=== PATIENT | female | born 1960 | race African-American/Black ===

== ENCOUNTER 2020-06-10 13:26 | Outpatient (CLI) | payer MEDICARE | END 2020-06-10 13:27 | disposition home or self-care (01) | LOC: CSHWCC 13:26 | PROVIDERS: ATTEND Nurse Practitioner Family | DX: T81.89XA Other complications of procedures, not elsewhere classified, initial encounter (principal); E11.621 Type 2 diabetes mellitus with foot ulcer; G89.11 Acute pain due to trauma; I10 Essential (primary) hypertension; I70.25 Atherosclerosis of native arteries of other extremities with ulceration; Z89.412 Acquired absence of left great toe; Z89.511 Acquired absence of right leg below knee | CPT/HCPCS: 97605; 99203; G0463 ==

== ENCOUNTER 2020-07-04 11:42 | Outpatient (CLI) | payer MEDICARE | END 2020-07-04 11:43 | disposition home or self-care (01) | LOC: CSHWCC 11:42 | PROVIDERS: ATTEND Nurse Practitioner Family | DX: T81.89XD Other complications of procedures, not elsewhere classified, subsequent encounter (principal); E11.621 Type 2 diabetes mellitus with foot ulcer; L97.509 Non-pressure chronic ulcer of other part of unspecified foot with unspecified severity; G89.11 Acute pain due to trauma; I10 Essential (primary) hypertension; I70.25 Atherosclerosis of native arteries of other extremities with ulceration; Z89.412 Acquired absence of left great toe; Z89.511 Acquired absence of right leg below knee | CPT/HCPCS: 97605 ==

== ENCOUNTER 2020-07-18 10:45 | Outpatient (CLI) | payer MEDICARE | END 2020-07-18 10:46 | disposition home or self-care (01) | LOC: CSHWCC 10:45 | PROVIDERS: ATTEND Nurse Practitioner Family | DX: T81.89XD Other complications of procedures, not elsewhere classified, subsequent encounter (principal); E11.621 Type 2 diabetes mellitus with foot ulcer; L97.509 Non-pressure chronic ulcer of other part of unspecified foot with unspecified severity; G89.11 Acute pain due to trauma; I10 Essential (primary) hypertension; I70.25 Atherosclerosis of native arteries of other extremities with ulceration; Z89.412 Acquired absence of left great toe; Z89.511 Acquired absence of right leg below knee | CPT/HCPCS: 99213; G0463 ==

== ENCOUNTER 2022-04-09 19:03 | Inpatient (IN) | payer MEDICARE ==
[~2022-04-09 19:03] MED LIST: Iopamidol 300 61% 100 ML VIAL FS ONE
[2022-04-09] MEDS ORDERED: Metoclopramide HCl 10 MG/2 ML VIAL ONE (19:52)
[2022-04-09 20:01] LABS: #Basophils 0.1 10x3/uL (0.0-0.2); #Eosinphils 0.3 10x3/uL (0.0-0.5); #Monocytes 0.9 10x3/uL (0.0-1.1); #Neutrophils 7.2 10x3/uL (1.5-8.4); %Basophils 0.6 % (0.0-2.0); %Eosinophils 2.4 % (0.0-6.0); %Lymphocytes 16.8 % (18.0-47.0); %Neutrophils 67.3 % (40.0-75.0); Hemoglobin 7.9 g/dL (12.0-15.5); Mean Corpuscular HGB CONC 30.7 g/dL (32.0-36.0); Mean Corpuscular Hemoglobin 29.3 pg (27.0-33.0); Mean Corpuscular Volume 95.2 fl (81.6-98.3); Mean Platelet Volume 8.9 fl (7.4-10.4); Platelet Count 380 10x3/uL (150-450); RBC Distribution Width 17.3 % (11.5-14.5); White Blood Cell (WBC) Count 10.8 10x3/uL (3.5-10.5)
[2022-04-09 20:12] LABS: INR-International Normal Ratio 1.1; PTT 31.3 sec (22.0-33.0); Prothrombin Time 12.1 sec (9.5-12.1)
[2022-04-09 20:17] LABS: ALT (SGPT) 11 U/L (8-55); AST (SGOT) 17 U/L (5-34); Albumin 2.9 g/dL (3.4-4.8); Alkaline Phosphatase 111 U/L (40-110); Anion Gap 16 mmol/L (10-20); BUN (Urea Nitrogen) 23 mg/dL (9.8-20.1); Bilirubin, Total 0.3 mg/dL (0.2-1.2); Calc. Creatinine Clearance 0 mL/min (70-130); Calcium 8.7 mg/dL (7.8-10.44); Carbon Dioxide 25 mmol/L (23-31); Chloride 99 mmol/L (98-107); Estimated GFR 12; Globulin 4.5 g/dL (2.4-3.5); Glucose 135 mg/dL (80-115); Lipase 100 U/L (8-78); Magnesium 1.8 mg/dL (1.6-2.6); Potassium 3.7 mmol/L (3.5-5.1); Protein, Total 7.4 g/dL (5.8-8.1); Sodium 136 mmol/L (136-145)
[2022-04-09 20:47] LABS: SARS-CoV-2 NAA Rapid Test Not Detected (NotDetected)
[2022-04-09] MEDS ORDERED: Furosemide 40 MG/4 ML VIAL ONE (23:34)
[2022-04-10] MEDS ORDERED: Furosemide 100 MG/10 ML VIAL SLOW IVP SCH (01:30)
[2022-04-10 03:23] VITALS: BMI 32.1
[2022-04-10 05:52] LABS: #Basophils 0.1 10x3/uL (0.0-0.2); #Eosinphils 0.2 10x3/uL (0.0-0.5); #Monocytes 0.7 10x3/uL (0.0-1.1); #Neutrophils 6.5 10x3/uL (1.5-8.4); %Basophils 0.5 % (0.0-2.0); %Eosinophils 2.3 % (0.0-6.0); %Lymphocytes 16.3 % (18.0-47.0); %Monocytes 7.8 % (0.0-10.0); %Neutrophils 68.6 % (40.0-75.0); Hemoglobin 6.8 g/dL (12.0-15.5); Mean Corpuscular HGB CONC 29.8 g/dL (32.0-36.0); Mean Corpuscular Hemoglobin 28.1 pg (27.0-33.0); Mean Corpuscular Volume 94.2 fl (81.6-98.3); Platelet Count 334 10x3/uL (150-450); RBC Distribution Width 17.2 % (11.5-14.5); Red Blood Cell (RBC) Count 2.42 10x6/uL (3.90-5.03); White Blood Cell (WBC) Count 9.4 10x3/uL (3.5-10.5)
[2022-04-10 06:07] LABS: Anion Gap 15 mmol/L (10-20); BUN (Urea Nitrogen) 25 mg/dL (9.8-20.1); Calc. Creatinine Clearance 17 mL/min (70-130); Calcium 8.3 mg/dL (7.8-10.44); Carbon Dioxide 26 mmol/L (23-31); Chloride 101 mmol/L (98-107); Estimated GFR 10; Glucose 152 mg/dL (80-115); Magnesium 1.6 mg/dL (1.6-2.6); Phosphorus 3.4 mg/dL (2.3-4.7); Potassium 3.5 mmol/L (3.5-5.1); Sodium 138 mmol/L (136-145)
[2022-04-10 06:12] LABS: Anisocytosis SLIGHT = 6-15 cells (100X) (0-5/hpf); Hypochromia SLIGHT = 6-15 cells (100X) (0-5/hpf); Microcytosis SLIGHT = 6-15 cells (100X) (0-5/hpf); Ovalocytes SLIGHT = 2-5 cells (100X) (0-1/hpf); Platelet Morphology Comment Appears Adequate; Polychromasia SLIGHT = 2-3 cells (100X) (0-2/hpf); Tear Drops SLIGHT = 2-5 cells (100X) (0-1/hpf)
[2022-04-10] MEDS: Levothyroxine 150 MCG TAB PO SCH (06:13)
[2022-04-10] MEDS: hydrOXYzine 25 MG TAB PO PRN ×2 (06:17→20:50)
[2022-04-10] MEDS ORDERED: Vancomycin Diaylsis Sliding Scale (Wt 71-99) FS SCH (06:30)
[2022-04-10 07:16] LABS: Vancomycin, Random 24.5 ug/mL (See Comment)
[2022-04-10 07:30] LABS: Uric Acid 4.6 mg/dL (2.6-6.0)
[2022-04-10] MEDS ORDERED: Naproxen 500 MG TAB PO SCH (09:00)
[2022-04-10] MEDS ORDERED: EPOETIN ALFA-EPBX (ESRD) 10,000 UNIT/ML VIAL SC SCH (09:00)
[2022-04-10] MEDS ORDERED: Sodium Bicarbonate Tab 325 MG TAB PO SCH (09:00)
[2022-04-10] MEDS: hydrALAZINE 25 MG TAB PO SCH ×3 (09:45→20:51)
[2022-04-10] MEDS: Docusate 100 MG CAP PO SCH ×2 (09:45→10:11)
[2022-04-10] MEDS: NIFEdipine XL 60 MG TAB PO SCH (09:46)
[2022-04-10] MEDS: Cholecalciferol 1,000 UNITS (25 MCG) TAB PO SCH (09:46)
[2022-04-10] MEDS: Carvedilol 25 MG TAB PO SCH ×2 (09:46→19:04)
[2022-04-10] MEDS: Apixaban 2.5 MG TAB PO SCH ×2 (09:46→20:51)
[2022-04-10] MEDS: Ferrous Sulfate 325 MG TAB PO SCH (09:46)
[2022-04-10] MEDS: Furosemide 40 MG TAB PO SCH ×2 (09:46→20:51)
[2022-04-10] MEDS: Calcitriol 0.25 MCG CAP PO SCH (09:47)
[2022-04-10] MEDS: HYDROcodone/Acetaminophen 5/325 mg Tablet PO PRN ×2 (09:54→20:45)
[2022-04-10] MEDS ORDERED: Heparin 10,000 UNITS/ 10 ML VIAL SLOW IVP PRN (12:06)
[2022-04-10] MEDS ORDERED: EPOETIN ALFA-EPBX (ESRD) 10,000 UNIT/ML VIAL IVP PRN (12:16)
[2022-04-10] MEDS: Lantus 1000 UNITS/10 ML VIAL SC SCH (21:24)
[2022-04-10 23:19] LABS: HBSAg Index 0.17 S/CO (0-0.99); Hep B Surf Ag Non-Reactive S/CO (NonReactive)
[2022-04-11] MEDS: HYDROcodone/Acetaminophen 5/325 mg Tablet PO PRN ×4 (02:27→23:07)
[2022-04-11] MEDS: Levothyroxine 150 MCG TAB PO SCH (06:51)
[2022-04-11] MEDS: NIFEdipine XL 60 MG TAB PO SCH (10:31)
[2022-04-11] MEDS: Docusate 100 MG CAP PO SCH (10:31)
[2022-04-11] MEDS: Cholecalciferol 1,000 UNITS (25 MCG) TAB PO SCH (10:32)
[2022-04-11] MEDS: Calcitriol 0.25 MCG CAP PO SCH (10:32)
[2022-04-11] MEDS: Apixaban 2.5 MG TAB PO SCH ×2 (10:33→20:26)
[2022-04-11] MEDS: Furosemide 40 MG TAB PO SCH ×2 (10:33→20:26)
[2022-04-11] MEDS: hydrALAZINE 25 MG TAB PO SCH ×3 (10:33→20:26)
[2022-04-11] MEDS: Ferrous Sulfate 325 MG TAB PO SCH (10:34)
[2022-04-11] MEDS: Carvedilol 25 MG TAB PO SCH ×2 (10:34→17:27)
[2022-04-11] MEDS: hydrOXYzine 25 MG TAB PO PRN ×2 (16:43→23:09)
[2022-04-11] MEDS: Lantus 1000 UNITS/10 ML VIAL SC SCH (23:30)
[2022-04-12] MEDS: hydrOXYzine 25 MG TAB PO PRN ×3 (05:35→18:34)
[2022-04-12] MEDS: HYDROcodone/Acetaminophen 5/325 mg Tablet PO PRN ×3 (05:35→18:34)
[2022-04-12] MEDS: Levothyroxine 150 MCG TAB PO SCH (05:48)
[2022-04-12] MEDS: Calcitriol 0.25 MCG CAP PO SCH (08:14)
[2022-04-12] MEDS: Docusate 100 MG CAP PO SCH (08:14)
[2022-04-12] MEDS: Furosemide 40 MG TAB PO SCH ×2 (08:17→22:02)
[2022-04-12] MEDS: hydrALAZINE 25 MG TAB PO SCH ×3 (08:17→22:02)
[2022-04-12] MEDS: NIFEdipine XL 60 MG TAB PO SCH (08:18)
[2022-04-12] MEDS: Cholecalciferol 1,000 UNITS (25 MCG) TAB PO SCH (08:19)
[2022-04-12] MEDS: Ferrous Sulfate 325 MG TAB PO SCH (08:19)
[2022-04-12] MEDS: Carvedilol 25 MG TAB PO SCH ×2 (08:19→18:34)
[2022-04-12] MEDS: Pantoprazole 40 MG VIAL IVP SCH ×2 (08:19→22:02)
[2022-04-12 09:31] LABS: #Basophils 0.1 10x3/uL (0.0-0.2); #Eosinphils 0.3 10x3/uL (0.0-0.5); #Monocytes 0.8 10x3/uL (0.0-1.1); #Neutrophils 6.7 10x3/uL (1.5-8.4); %Basophils 0.7 % (0.0-2.0); %Eosinophils 2.6 % (0.0-6.0); %Lymphocytes 16.5 % (18.0-47.0); %Neutrophils 68.8 % (40.0-75.0); Hemoglobin 9.2 g/dL (12.0-15.5); Mean Corpuscular HGB CONC 30.6 g/dL (32.0-36.0); Mean Platelet Volume 9.1 fl (7.4-10.4); Platelet Count 357 10x3/uL (150-450); RBC Distribution Width 17.7 % (11.5-14.5); Red Blood Cell (RBC) Count 3.17 10x6/uL (3.90-5.03); White Blood Cell (WBC) Count 9.7 10x3/uL (3.5-10.5)
[2022-04-12] MEDS: Lantus 1000 UNITS/10 ML VIAL SC SCH (22:03)
[2022-04-13] MEDS: hydrOXYzine 25 MG TAB PO PRN ×2 (01:20→20:14)
[2022-04-13] MEDS: HYDROcodone/Acetaminophen 5/325 mg Tablet PO PRN ×2 (01:20→22:17)
[2022-04-13] MEDS ORDERED: Ondansetron PF 4 MG/2 ML Vial IVP PRN (01:24)
[2022-04-13 05:19] LABS: #Basophils 0.1 10x3/uL (0.0-0.2); #Eosinphils 0.3 10x3/uL (0.0-0.5); #Monocytes 0.8 10x3/uL (0.0-1.1); #Neutrophils 6.9 10x3/uL (1.5-8.4); %Basophils 0.7 % (0.0-2.0); %Eosinophils 2.8 % (0.0-6.0); %Lymphocytes 17.3 % (18.0-47.0); %Monocytes 7.5 % (0.0-10.0); %Neutrophils 68.2 % (40.0-75.0); Hemoglobin 8.5 g/dL (12.0-15.5); Mean Corpuscular HGB CONC 31.1 g/dL (32.0-36.0); Mean Corpuscular Hemoglobin 28.7 pg (27.0-33.0); Mean Corpuscular Volume 92.2 fl (81.6-98.3); Mean Platelet Volume 10.3 fl (7.4-10.4); Platelet Count 311 10x3/uL (150-450); RBC Distribution Width 17.6 % (11.5-14.5); Red Blood Cell (RBC) Count 2.96 10x6/uL (3.90-5.03); White Blood Cell (WBC) Count 10.1 10x3/uL (3.5-10.5)
[2022-04-13] MEDS: Levothyroxine 150 MCG TAB PO SCH (05:23)
[2022-04-13 05:28] LABS: Anion Gap 14 mmol/L (10-20); BUN (Urea Nitrogen) 21 mg/dL (9.8-20.1); Calc. Creatinine Clearance 15 mL/min (70-130); Calcium 8.4 mg/dL (7.8-10.44); Carbon Dioxide 24 mmol/L (23-31); Chloride 101 mmol/L (98-107); Estimated GFR 9; Glucose 154 mg/dL (80-115); Potassium 3.6 mmol/L (3.5-5.1); Sodium 135 mmol/L (136-145)
[2022-04-13 07:22] LABS: Vancomycin, Random 17.5 ug/mL (See Comment)
[2022-04-13] MEDS: hydrALAZINE 25 MG TAB PO SCH ×3 (09:00→20:14)
[2022-04-13] MEDS: Docusate 100 MG CAP PO SCH (09:01)
[2022-04-13] MEDS: NIFEdipine XL 60 MG TAB PO SCH (09:21)
[2022-04-13] MEDS: Carvedilol 25 MG TAB PO SCH ×2 (09:21→17:42)
[2022-04-13] MEDS: Promethazine HCl 12.5 MG in Sodium Chloride 0.9% 50 ML IVPB PRN ×2 (09:56→21:50)
[2022-04-13] MEDS: Calcitriol 0.25 MCG CAP PO SCH (13:07)
[2022-04-13] MEDS: Cholecalciferol 1,000 UNITS (25 MCG) TAB PO SCH (13:08)
[2022-04-13] MEDS ORDERED: PROPOFOL 20 ML ONE (13:53)
[2022-04-13] MEDS ORDERED: Lidocaine 2% PF 100 mg/5 ml Syringe ONE (13:53)
[2022-04-13] MEDS ORDERED: PHENYLEPHRINE-NS 100 MCG/ML 10 ML SYRINGE ONE (13:53)
[2022-04-13] MEDS ORDERED: ePHEDrine Sulfate 50 MG/10 ML VIAL ONE (13:53)
[2022-04-13] MEDS ORDERED: Albuterol HFA (OR) 200 PUFF INH ONE (13:53)
[2022-04-13] MEDS ORDERED: Succinylcholine 200 MG/10 ml SYRINGE FS ONE (13:54)
[2022-04-13] MEDS ORDERED: Ondansetron PF 4 MG/2 ML Vial ONE (14:12)
[2022-04-13] MEDS ORDERED: Metoclopramide HCl 10 MG/2 ML VIAL ONE (14:23)
[2022-04-13] MEDS: Pantoprazole 40 MG VIAL IVP SCH ×2 (14:31→23:44)
[2022-04-13] MEDS: Furosemide 40 MG TAB PO SCH (14:31)
[2022-04-13] MEDS ORDERED: Vancomycin HCl 500 MG in Sodium Chloride 0.9% 100 ML IVPB SCH ×2 (17:00→23:59)
[2022-04-14] MEDS: hydrOXYzine 25 MG TAB PO PRN ×2 (01:48→12:28)
[2022-04-14] MEDS: Furosemide 40 MG TAB PO SCH ×2 (01:57→09:00)
[2022-04-14] MEDS: Lantus 1000 UNITS/10 ML VIAL SC SCH (01:57)
[2022-04-14] MEDS: HYDROcodone/Acetaminophen 5/325 mg Tablet PO PRN (04:49)
[2022-04-14] MEDS: Levothyroxine 150 MCG TAB PO SCH (04:50)
[2022-04-14] MEDS ORDERED: Scopolamine 1.5 mg/72 hour Patch TOP SCH (08:30)
[2022-04-14] MEDS ORDERED: Pantoprazole 40 MG VIAL ONE (08:49)
[2022-04-14] MEDS: Scopolamine 1.5 mg/72 hour Patch TD SCH (08:57)
[2022-04-14] MEDS: Pantoprazole 40 MG VIAL IVP SCH ×2 (08:58→22:10)
[2022-04-14] MEDS: Calcitriol 0.25 MCG CAP PO SCH (08:59)
[2022-04-14] MEDS: Docusate 100 MG CAP PO SCH (09:00)
[2022-04-14] MEDS: Carvedilol 25 MG TAB PO SCH ×2 (09:00→17:26)
[2022-04-14] MEDS: NIFEdipine XL 60 MG TAB PO SCH (09:00)
[2022-04-14] MEDS: hydrALAZINE 25 MG TAB PO SCH ×2 (09:00→16:50)
[2022-04-14] MEDS: Cholecalciferol 1,000 UNITS (25 MCG) TAB PO SCH (09:00)
[2022-04-14] MEDS: Promethazine HCl 12.5 MG in Sodium Chloride 0.9% 50 ML IVPB PRN (09:01)
[2022-04-14] MEDS: Ondansetron PF 4 MG/2 ML Vial IVP PRN ×2 (10:51→22:10)
[2022-04-14 15:28] LABS: Hep B Core Total Ab Non-Reactive (NonReactive); Hep B Core Total Index 0.11 S/CO (0-0.79)
[2022-04-14 16:26] LABS: Hep C IgG Ab Non-Reactive (NonReactive); Hep C Index 0.13 S/CO (0-0.79)
[2022-04-14 18:09] LABS: Hep B Surf AB Indeterminate (NonReactive)
[2022-04-14 18:22] LABS: HBSAB Concentration 11.15 mIU/mL
[2022-04-14] MEDS ORDERED: Lorazepam 2 MG/ML VIAL SLOW IVP SCH (23:15)
[2022-04-15] MEDS ORDERED: Labetalol HCl 100 MG/20 ML VIAL SLOW IVP SCH (01:15)
[2022-04-15] MEDS: Lantus 1000 UNITS/10 ML VIAL SC SCH (01:49)
[2022-04-15] MEDS: hydrALAZINE 25 MG TAB PO SCH ×3 (01:49→18:38)
[2022-04-15] MEDS: Furosemide 40 MG TAB PO SCH ×2 (01:49→10:28)
[2022-04-15] MEDS: Levothyroxine 150 MCG TAB PO SCH (07:23)
[2022-04-15] MEDS: Pantoprazole 40 MG VIAL IVP SCH (10:26)
[2022-04-15] MEDS: NIFEdipine XL 60 MG TAB PO SCH (10:26)
[2022-04-15] MEDS: Carvedilol 25 MG TAB PO SCH ×2 (10:27→18:37)
[2022-04-15] MEDS: Cholecalciferol 1,000 UNITS (25 MCG) TAB PO SCH (10:27)
[2022-04-15] MEDS: Calcitriol 0.25 MCG CAP PO SCH (10:27)
[2022-04-15] MEDS: Docusate 100 MG CAP PO SCH (10:28)
[2022-04-15] MEDS: Ondansetron PF 4 MG/2 ML Vial IVP PRN ×2 (10:45→21:30)
[2022-04-15] MEDS: HYDROcodone/Acetaminophen 5/325 mg Tablet PO PRN (13:52)
[2022-04-15] MEDS ORDERED: Vancomycin HCl 750 MG in Sodium Chloride 0.9% 250 ML 250 ML IVPB SCH (17:00)
[2022-04-15] MEDS ORDERED: Fluconazole 100 MG TAB PO SCH (17:15)
[2022-04-16] MEDS: hydrALAZINE 25 MG TAB PO SCH ×3 (00:55→15:47)
[2022-04-16] MEDS: Lantus 1000 UNITS/10 ML VIAL SC SCH (00:56)
[2022-04-16] MEDS: Furosemide 40 MG TAB PO SCH ×3 (00:56→18:33)
[2022-04-16] MEDS: HYDROcodone/Acetaminophen 5/325 mg Tablet PO PRN ×2 (00:57→11:00)
[2022-04-16] MEDS: Pantoprazole 40 MG VIAL IVP SCH ×2 (01:16→11:00)
[2022-04-16] MEDS: Lorazepam 0.5 MG TAB PO PRN (02:08)
[2022-04-16] MEDS: Levothyroxine 150 MCG TAB PO SCH ×2 (06:25→11:02)
[2022-04-16 08:47] LABS: #Basophils 0.1 10x3/uL (0.0-0.2); #Eosinphils 0.1 10x3/uL (0.0-0.5); #Monocytes 0.8 10x3/uL (0.0-1.1); #Neutrophils 6.3 10x3/uL (1.5-8.4); %Basophils 0.6 % (0.0-2.0); %Eosinophils 1.4 % (0.0-6.0); %Lymphocytes 15.8 % (18.0-47.0); %Monocytes 8.7 % (0.0-10.0); %Neutrophils 72.5 % (40.0-75.0); Hemoglobin 10.3 g/dL (12.0-15.5); Mean Corpuscular HGB CONC 31.5 g/dL (32.0-36.0); Mean Corpuscular Hemoglobin 28.8 pg (27.0-33.0); Mean Corpuscular Volume 91.3 fl (81.6-98.3); Platelet Count 311 10x3/uL (150-450); RBC Distribution Width 17.2 % (11.5-14.5); Red Blood Cell (RBC) Count 3.58 10x6/uL (3.90-5.03); White Blood Cell (WBC) Count 8.7 10x3/uL (3.5-10.5)
[2022-04-16 09:04] LABS: Anion Gap 15 mmol/L (10-20); BUN (Urea Nitrogen) 9 mg/dL (9.8-20.1); Calc. Creatinine Clearance 30 mL/min (70-130); Calcium 8.6 mg/dL (7.8-10.44); Carbon Dioxide 26 mmol/L (23-31); Chloride 100 mmol/L (98-107); Estimated GFR 20; Glucose 204 mg/dL (80-115); Potassium 3.5 mmol/L (3.5-5.1); Sodium 137 mmol/L (136-145)
[2022-04-16] MEDS ORDERED: Promethazine HCl 12.5 MG in Sodium Chloride 0.9% 50 ML IVPB PRN (10:32)
[2022-04-16] MEDS: NIFEdipine XL 60 MG TAB PO SCH (11:01)
[2022-04-16] MEDS: Carvedilol 25 MG TAB PO SCH ×2 (11:01→18:33)
[2022-04-16] MEDS: Cholecalciferol 1,000 UNITS (25 MCG) TAB PO SCH (11:01)
[2022-04-16] MEDS: Calcitriol 0.25 MCG CAP PO SCH (11:02)
[2022-04-16] MEDS: Docusate 100 MG CAP PO SCH (11:03)
[2022-04-16] MEDS: Fluconazole 100 MG TAB PO SCH (18:33)
[2022-04-17] MEDS: Lantus 1000 UNITS/10 ML VIAL SC SCH ×2 (00:06→21:59)
[2022-04-17] MEDS: Pantoprazole 40 MG VIAL IVP SCH ×3 (00:06→22:32)
[2022-04-17] MEDS: hydrALAZINE 25 MG TAB PO SCH ×4 (00:06→22:00)
[2022-04-17] MEDS: HYDROcodone/Acetaminophen 5/325 mg Tablet PO PRN ×3 (00:07→21:58)
[2022-04-17] MEDS: Loperamide HCl 2 MG CAP PO PRN ×2 (04:32→18:08)
[2022-04-17 05:33] LABS: Anion Gap 12 mmol/L (10-20); BUN (Urea Nitrogen) 17 mg/dL (9.8-20.1); Calc. Creatinine Clearance 19 mL/min (70-130); Calcium 8.5 mg/dL (7.8-10.44); Carbon Dioxide 28 mmol/L (23-31); Chloride 100 mmol/L (98-107); Estimated GFR 11; Glucose 158 mg/dL (80-115); Potassium 3.5 mmol/L (3.5-5.1); Sodium 136 mmol/L (136-145)
[2022-04-17] MEDS ORDERED: Potassium Chloride 20 MEQ TAB PO SCH (06:15)
[2022-04-17] MEDS: Sucralfate 1 GM TAB PO SCH ×5 (07:39→22:32)
[2022-04-17 07:43] LABS: Vancomycin, Random 16.1 ug/mL (See Comment)
[2022-04-17] MEDS: Scopolamine 1.5 mg/72 hour Patch TD SCH (10:06)
[2022-04-17] MEDS: Cholecalciferol 1,000 UNITS (25 MCG) TAB PO SCH (10:07)
[2022-04-17] MEDS: Calcitriol 0.25 MCG CAP PO SCH (10:08)
[2022-04-17] MEDS: Furosemide 40 MG TAB PO SCH ×2 (10:35→22:00)
[2022-04-17] MEDS: Docusate 100 MG CAP PO SCH (10:35)
[2022-04-17] MEDS: Carvedilol 25 MG TAB PO SCH ×2 (10:35→18:09)
[2022-04-17] MEDS: NIFEdipine XL 60 MG TAB PO SCH (10:36)
[2022-04-17] MEDS ORDERED: Promethazine HCl 12.5 MG in Sodium Chloride 0.9% 50 ML IVPB PRN (12:13)
[2022-04-17] MEDS ORDERED: Promethazine 25 MG TAB PO PRN (12:15)
[2022-04-17] MEDS: Fluconazole 100 MG TAB PO SCH (18:22)
[2022-04-17] MEDS: Promethazine 25 MG TAB PO SCH (18:22)
[2022-04-17] MEDS: Vancomycin HCl 750 MG in Sodium Chloride 0.9% 250 ML 250 ML IVPB SCH (18:30)
[2022-04-17] MEDS: Lorazepam 0.5 MG TAB PO PRN (21:58)
[2022-04-18] MEDS: HYDROcodone/Acetaminophen 5/325 mg Tablet PO PRN ×2 (02:13→23:58)
[2022-04-18] MEDS: Vancomycin HCl 750 MG in Sodium Chloride 0.9% 250 ML 250 ML IVPB SCH (03:46)
[2022-04-18] MEDS: Promethazine 25 MG TAB PO SCH ×2 (05:40→17:40)
[2022-04-18] MEDS: Levothyroxine 150 MCG TAB PO SCH (05:40)
[2022-04-18] MEDS: Pantoprazole 40 MG VIAL IVP SCH ×2 (08:41→22:12)
[2022-04-18] MEDS: NIFEdipine XL 60 MG TAB PO SCH ×3 (08:42→10:44)
[2022-04-18] MEDS: Sucralfate 1 GM TAB PO SCH ×4 (08:42→22:12)
[2022-04-18] MEDS: Docusate 100 MG CAP PO SCH (08:44)
[2022-04-18] MEDS: Furosemide 40 MG TAB PO SCH ×2 (08:44→22:12)
[2022-04-18] MEDS: Lorazepam 0.5 MG TAB PO PRN ×2 (08:45→23:58)
[2022-04-18 10:37] LABS: #Basophils 0.1 10x3/uL (0.0-0.2); #Eosinphils 0.2 10x3/uL (0.0-0.5); #Monocytes 0.9 10x3/uL (0.0-1.1); #Neutrophils 4.3 10x3/uL (1.5-8.4); %Eosinophils 3.1 % (0.0-6.0); %Lymphocytes 27.7 % (18.0-47.0); %Monocytes 11.3 % (0.0-10.0); %Neutrophils 55.9 % (40.0-75.0); Hemoglobin 9.4 g/dL (12.0-15.5); Mean Corpuscular HGB CONC 30.8 g/dL (32.0-36.0); Mean Corpuscular Hemoglobin 28.7 pg (27.0-33.0); Mean Corpuscular Volume 93.3 fl (81.6-98.3); Mean Platelet Volume 9.8 fl (7.4-10.4); Platelet Count 246 10x3/uL (150-450); RBC Distribution Width 16.9 % (11.5-14.5); Red Blood Cell (RBC) Count 3.27 10x6/uL (3.90-5.03); White Blood Cell (WBC) Count 7.6 10x3/uL (3.5-10.5)
[2022-04-18] MEDS: Carvedilol 25 MG TAB PO SCH ×2 (10:41→17:39)
[2022-04-18] MEDS: hydrALAZINE 25 MG TAB PO SCH ×3 (10:42→22:12)
[2022-04-18 10:46] LABS: Anion Gap 14 mmol/L (10-20); BUN (Urea Nitrogen) 14 mg/dL (9.8-20.1); Calc. Creatinine Clearance 22 mL/min (70-130); Calcium 8.4 mg/dL (7.8-10.44); Carbon Dioxide 23 mmol/L (23-31); Chloride 101 mmol/L (98-107); Estimated GFR 14; Glucose 180 mg/dL (80-115); Potassium 3.9 mmol/L (3.5-5.1); Sodium 134 mmol/L (136-145)
[2022-04-18] MEDS ORDERED: Gabapentin 100 MG CAP PO SCH (11:00)
[2022-04-18 11:01] LABS: Vancomycin, Random 13.5 ug/mL (See Comment)
[2022-04-18] MEDS ORDERED: Vancomycin HCl 750 MG in Sodium Chloride 0.9% 250 ML 250 ML IVPB SCH (12:30)
[2022-04-18] MEDS: Gabapentin 100 MG CAP PO SCH ×2 (14:40→22:12)
[2022-04-18] MEDS: Fluconazole 100 MG TAB PO SCH (17:40)
[2022-04-18] MEDS: Lantus 1000 UNITS/10 ML VIAL SC SCH (22:13)
[2022-04-19] MEDS: Levothyroxine 150 MCG TAB PO SCH (05:47)
[2022-04-19] MEDS: HYDROcodone/Acetaminophen 5/325 mg Tablet PO PRN (05:47)
[2022-04-19] MEDS: Promethazine 25 MG TAB PO SCH (05:47)
[2022-04-19] MEDS ORDERED: Pantoprazole 40 MG VIAL ONE (09:30)
[2022-04-19] MEDS: Furosemide 40 MG TAB PO SCH ×2 (09:41→21:46)
[2022-04-19] MEDS: Sucralfate 1 GM TAB PO SCH ×4 (09:43→21:45)
[2022-04-19] MEDS: Gabapentin 100 MG CAP PO SCH ×4 (09:45→21:46)
[2022-04-19] MEDS: Docusate 100 MG CAP PO SCH (09:45)
[2022-04-19] MEDS: Carvedilol 25 MG TAB PO SCH ×2 (09:45→16:45)
[2022-04-19] MEDS: NIFEdipine XL 60 MG TAB PO SCH (09:45)
[2022-04-19] MEDS: hydrALAZINE 25 MG TAB PO SCH ×3 (09:46→22:03)
[2022-04-19] MEDS: Loperamide HCl 2 MG CAP PO PRN ×2 (09:49→15:26)
[2022-04-19] MEDS: Pantoprazole 40 MG VIAL IVP SCH (09:55)
[2022-04-19] MEDS ORDERED: Promethazine 25 MG TAB PO PRN (13:55)
[2022-04-19] MEDS: hydrOXYzine 25 MG TAB PO PRN ×2 (15:27→21:46)
[2022-04-19] MEDS: Fluconazole 100 MG TAB PO SCH (16:46)
[2022-04-19] MEDS: Lorazepam 0.5 MG TAB PO PRN (21:46)
[2022-04-19] MEDS: Lantus 1000 UNITS/10 ML VIAL SC SCH (22:03)
[2022-04-20] MEDS: Levothyroxine 150 MCG TAB PO SCH (05:48)
[2022-04-20 07:12] LABS: Vancomycin, Random 19.7 ug/mL (See Comment)
[2022-04-20 07:27] LABS: Anion Gap 15 mmol/L (10-20); BUN (Urea Nitrogen) 28 mg/dL (9.8-20.1); Calc. Creatinine Clearance 13 mL/min (70-130); Calcium 7.7 mg/dL (7.8-10.44); Carbon Dioxide 22 mmol/L (23-31); Chloride 100 mmol/L (98-107); Estimated GFR 7; Glucose 165 mg/dL (80-115); Potassium 4.7 mmol/L (3.5-5.1); Sodium 132 mmol/L (136-145)
[2022-04-20] MEDS ORDERED: NIFEdipine XL 30 MG TAB PO SCH (09:00)
[2022-04-20] MEDS: Gabapentin 100 MG CAP PO SCH ×2 (09:13→15:45)
[2022-04-20] MEDS: Scopolamine 1.5 mg/72 hour Patch TD SCH (09:13)
[2022-04-20] MEDS: Furosemide 40 MG TAB PO SCH (09:13)
[2022-04-20] MEDS: Docusate 100 MG CAP PO SCH (09:13)
[2022-04-20] MEDS: hydrALAZINE 25 MG TAB PO SCH ×2 (09:13→15:35)
[2022-04-20] MEDS: Carvedilol 25 MG TAB PO SCH ×2 (09:13→15:47)
[2022-04-20] MEDS: Sucralfate 1 GM TAB PO SCH ×3 (09:16→15:47)
[2022-04-20] MEDS ORDERED: Vancomycin Diaylsis Sliding Scale (Wt 71-99) FS SCH (10:00)
[2022-04-20] MEDS: Fluconazole 100 MG TAB PO SCH (15:52)
[2022-04-20] MEDS: Activase 2 MG VIAL CATH SCH ×2 (17:20→17:36)
[2022-04-20] MEDS ORDERED: Vancomycin HCl 500 MG in Sodium Chloride 0.9% 100 ML IVPB SCH (20:00)
[2022-04-21] MEDS: Sucralfate 1 GM TAB PO SCH ×2 (02:04→08:51)
[2022-04-21] MEDS: Gabapentin 100 MG CAP PO SCH ×2 (02:04→08:51)
[2022-04-21] MEDS: Lorazepam 0.5 MG TAB PO PRN (02:06)
[2022-04-21] MEDS: Furosemide 40 MG TAB PO SCH ×2 (02:07→07:25)
[2022-04-21] MEDS: hydrALAZINE 25 MG TAB PO SCH ×2 (02:07→08:51)
[2022-04-21] MEDS ORDERED: Vancomycin HCl 500 MG in Sodium Chloride 0.9% 100 ML IVPB SCH (02:15)
[2022-04-21] MEDS: Lantus 1000 UNITS/10 ML VIAL SC SCH (03:00)
[2022-04-21 07:23] VITALS: BP 115/56; TEMP 98.7
[2022-04-21] MEDS: Levothyroxine 150 MCG TAB PO SCH (07:25)
[2022-04-21] MEDS: Docusate 100 MG CAP PO SCH (08:51)
[2022-04-21] MEDS: Carvedilol 25 MG TAB PO SCH (08:51)
[2022-04-21] MEDS: hydrOXYzine 25 MG TAB PO PRN (08:51)
== END 2022-04-21 12:13 | DRG 314 ==
LOC: CSHERS 19:03 → CSHTELE 04-10 00:49
PROVIDERS: ADMIT Family Medicine; ATTEND Family Medicine
PROC: 30233N1 Transfusion of Nonautologous Red Blood Cells into Peripheral Vein, Percutaneous Approach (ICD-10-PCS; 2022-04-10)
PROC: 5A1D70Z Performance of Urinary Filtration, Intermittent, Less than 6 Hours Per Day (ICD-10-PCS; 2022-04-10)
PROC: 0DB38ZX Excision of Lower Esophagus, Via Natural or Artificial Opening Endoscopic, Diagnostic (ICD-10-PCS; principal; 2022-04-13)
PROC: 0DB68ZX Excision of Stomach, Via Natural or Artificial Opening Endoscopic, Diagnostic (ICD-10-PCS; 2022-04-13)
PROC: 0DB28ZX Excision of Middle Esophagus, Via Natural or Artificial Opening Endoscopic, Diagnostic (ICD-10-PCS; 2022-04-13)
PROC: 5A09357 Assistance with Respiratory Ventilation, Less than 24 Consecutive Hours, Continuous Positive Airway Pressure (ICD-10-PCS; 2022-04-19)
DX: I31.39 Other pericardial effusion (noninflammatory) (principal); J96.01 Acute respiratory failure with hypoxia; N18.6 End stage renal disease; I13.2 Hypertensive heart and chronic kidney disease with heart failure and with stage 5 chronic kidney disease, or end stage renal disease; I50.32 Chronic diastolic (congestive) heart failure; I69.351 Hemiplegia and hemiparesis following cerebral infarction affecting right dominant side; D62 Acute posthemorrhagic anemia; K92.1 Melena; N25.81 Secondary hyperparathyroidism of renal origin; B37.81 Candidal esophagitis; Z51.5 Encounter for palliative care; E11.22 Type 2 diabetes mellitus with diabetic chronic kidney disease; B95.62 Methicillin resistant Staphylococcus aureus infection as the cause of diseases classified elsewhere; E11.51 Type 2 diabetes mellitus with diabetic peripheral angiopathy without gangrene; E78.5 Hyperlipidemia, unspecified; Z20.822 Contact with and (suspected) exposure to COVID-19; E03.9 Hypothyroidism, unspecified; L89.159 Pressure ulcer of sacral region, unspecified stage; D63.1 Anemia in chronic kidney disease; Z98.890 Other specified postprocedural states; Z88.8 Allergy status to other drugs, medicaments and biological substances; Z88.1 Allergy status to other antibiotic agents; Z99.2 Dependence on renal dialysis; Z88.2 Allergy status to sulfonamides; Z79.899 Other long term (current) drug therapy; Z79.4 Long term (current) use of insulin; Z90.49 Acquired absence of other specified parts of digestive tract; Z98.51 Tubal ligation status; Z89.512 Acquired absence of left leg below knee; Z89.511 Acquired absence of right leg below knee; Z88.5 Allergy status to narcotic agent; Z88.6 Allergy status to analgesic agent; Z91.018 Allergy to other foods
CPT/HCPCS: 36415; 36416; 36430; 71260; 80048; 80053; 80202; 83605; 83690; 83735; 83880; 84100; 84145; 84484; 84550; 85025; 85610; 85730; 86704; 86850; 86900; 86901; 87324; 87449; 87811; 88305; 90935; 93005; 93010; 93306; 94760; 96374; 96375; 97139; C9113; G0257; J1644; J1815; J1940; J2001; J2060; J2405; J2550; J2704; J2765; J2997; J3370; J3490; J7050; P9016; Q0169; Q9967